=== PATIENT | female | born 1935 | race Caucasian/White ===

== ENCOUNTER 2023-03-31 22:55 | Emergency (ER) | payer MEDICARE, SELFPAY ==
[2023-03-31 22:56] VITALS: BP 152/76; PULSE 92; RESP 15; TEMP 36.2; O2SAT 95; BMI 27.0
--- NOTE | 2023-04-01 00:16 | EX.ED.DYSGE1 ---
HPI History of Present Illness Chief Complaint: Itching Informant: patient Narrative Narrative: Patient presents with itching and diffuse slight rash for over a week or more. Nothing has been taken. She thinks is maybe her amlodipine or enalapril. However she has been on both of them for over 20 years. The dose is not changed. The appearance of the pills have not changed with refills. She did get a refill on these about 4 days ago but her symptoms were going on before that and she gets refills every 3 months. She cannot think of any different foods. She only uses Dove and Dreft soap. Those are not different. She cannot think of any new exposures with furniture cars or anything else. She states she has some raised bumps that are drying out. But the itch is still going on. It is all over. No known bug exposure. No trouble breathing eating drinking at all. PFSH [facility] Home Medications Famciclovir [Famvir] 500 mg PO TID 05/20/17 [History Last Taken Unknown] amlodipine 2.5 mg tablet 1 tab PO DAILY 05/20/17 [History Last Taken Unknown] enalapril maleate 5 mg tablet 1 tab PO DAILY 05/20/17 [History Last Taken Unknown] hydrochlorothiazide 12.5 mg capsule 1 tab PO DAILY 05/20/17 [History Last Taken Unknown] hydrocodone-acetaminophen 5-325mg 5mg-325mg 1 tab PO QHS ##7 05/20/17 [Rx Last Taken Unknown] hydroxyzine pamoate 25 mg capsule 12.5 mg (1/2 x 25 mg) PO TID PRN PRN Anxiety #30 CAPSULES 04/01/23 [Rx Last Taken Unknown] prednisone 20 mg tablet 40 mg (2 x 20 mg) PO DAILY 5 days #10 TABLETS 04/01/23 [Rx Last Taken Unknown] Allergy/AdvReac Type Severity Reaction Status Date / Time No Known Allergies Allergy Verified 03/31/23 23:00 Social History Smoking Status: Never smoker ROS ROS ED Constitutional Constitutional ED: Denies chills, fever(s) or subjective Eyes Eyes: Denies change in vision ENT ENT ED: Denies rhinorrhea or sore throat Cardiovascular Cardiovascular: Denies chest pain or palpitations Respiratory/Chest Respiratory/Chest: Denies cough or dyspnea Gastrointestinal Gastrointestinal: Denies abdominal pain, diarrhea, nausea or vomiting Musculoskeletal Musculoskeletal: Denies myalgias Integumentary Reports rash Neurologic Neurologic: Denies paresthesias or weakness Hematologic/Lymphatic Hematologic/Lymphatic: Denies easy bleeding, easy bruising or lymphadenopathy Allergic/Immunologic Allergic/Immunologic ED: Denies urticaria EXAM Physical Exam Narrative Exam Narrative: General: Patient is awake alert sitting comfortably in the room. No acute distress breathing normally carries on normal conversation. HEENT does show a few raised bumps mostly at the edge of the hair. None really on the face. No facial swelling. No intraoral lesions or petechiae or ulcerations. Voice is normal. Neck is supple without stridor Lungs are clear bilaterally. Saturations are normal at 95% on room air showing no hypoxia. Heart is regular. There is a quiet 1/6 systolic murmur. Abdomen is nontender Extremities show no deformity Skin does show some raised bumps all about a couple millimeters around. They almost have excoriation on top. None of these are vesicular. None are pustular. They really are not hives. They do appear to be drying at this time. They certainly could be bites but they are evenly spaced. Const Vital Signs: 03/31/23 22:56 Temperature 97.2 F L Temperature Source Temporal Pulse Rate 92 Respiratory Rate 15 Blood Pressure 152/76 H Blood Pressure Mean 101 Pulse Ox 95 Oxygen Delivery Method Room Air MDM MDM MDM Narrative Medical decision making narrative: The patient is possibly her blood pressure medicines but she has been on this for over 20 years with no problems which leans against that as a likely cause. It may be something she took internally. It appears as though the rash is drying up at this time. We will get her something for itch. Even though she is older she is very functional. I will get her some hydroxyzine. She should use a reduced dosage although we will use regular dose for initially to help her get some rest. I will initiate prednisone as this has been going on a week to 10 days. We discussed reasons to return. Discharge Plan Triage Chief Complaint: Itching ED Provider: Jace Zacarias Dx/Rx/DC Orders Clinical Impression: Rash and nonspecific skin eruption, Pruritus Instructions: ED General Allergic Reactions Prescriptions: New hydroxyzine pamoate [hydroxyzine pamoate] 25 mg capsule 12.5 mg PO TID PRN PRN (Reason: Anxiety) Qty: 30 0RF Rx Instructions: Take 1/2 to 1 capsule 3-4 times a day as needed for itch. Caution can make drowsy prednisone 20 mg tablet 40 mg PO DAILY 5 Days Qty: 10 0RF No Action hydrocodone-acetaminophen 1 TABLET tablet 1 tab PO QHS Qty: 7 0RF enalapril maleate 5 MG tablet 1 tab PO DAILY Patient Comments: DOSE UNKNOWN amlodipine 2.5 MG tablet 1 tab PO DAILY Patient Comments: DOSE UNKNOWN hydrochlorothiazide 12.5 MG capsule 1 tab PO DAILY Patient Comments: DOSE UNKNOWN Famciclovir [Famvir] 500 MG tablet 500 mg PO TID Referrals: Radha Marquez DO [Med Staff - Active Staff] - 3-5 Days if not improving Activity Restrictions/Additional Instructions: Up with your physician or referral as above. Disposition Disposition: Home, Self Care
[2023-04-01] MEDS: predniSONE 20 MG Tablet 40 MG PO (00:26)
[2023-04-01] MEDS: hydrOXYzine PAM 25 MG Capsule PO (00:27)
[2023-04-01 00:59] VITALS: PULSE 76; RESP 16; O2SAT 98
== END 2023-04-01 01:30 | disposition home or self-care (01) ==
LOC: ED 04-01 00:36
PROVIDERS: Emergency Provider Emergency Medicine; PCP Nurse Practitioner; Visit Provider Emergency Medicine
DX: R21 Rash and other nonspecific skin eruption (principal); L29.9 Pruritus, unspecified; Z79.899 Other long term (current) drug therapy
CPT/HCPCS: 99283

== ENCOUNTER 2023-04-21 18:46 | Emergency (ER) | payer MEDICARE, SELFPAY ==
[2023-04-21 18:47] VITALS: BP 139/96; PULSE 99; RESP 18; TEMP 36.4; O2SAT 95; BMI 27.2
--- NOTE | 2023-04-21 21:56 | EDS_ITS ---
HPI History of Present Illness Chief Complaint: Rash Narrative Narrative: With rash on her back which she has had previously. She states that last time she was in the emergency room she was treated with prednisone and hydroxyzine and this cleared it up. She states she followed up Kitty Older and was told to go to dermatology but never did it now the rash has returned. She states exactly the same. It is itchy. Topical creams do not work. She denies any new soaps, dyes, detergents, linens etc. Patient with no fevers or chills. No difficulty breathing. PFSH PFSH Home Medications amlodipine 2.5 mg tablet 10 mg PO DAILY 05/20/17 [History Last Taken Unknown] enalapril maleate 5 mg tablet 20 mg PO DAILY 05/20/17 [History Last Taken Unknown] hydroxyzine pamoate 25 mg capsule 12.5 mg (1/2 x 25 mg) PO TID PRN PRN Anxiety #30 CAPSULES 04/01/23 [Rx Last Taken Unknown] prednisone 20 mg tablet 40 mg (2 x 20 mg) PO DAILY 5 days #10 TABLETS 04/01/23 [Rx Last Taken Unknown] hydroxyzine HCl 25 mg tablet 25 mg PO TID PRN itching #30 tabs 04/21/23 [Rx Last Taken Unknown] prednisone 10 mg tablet 10 mg PO UD #33 tabs 04/21/23 [Rx Last Taken Unknown] Allergy/AdvReac Type Severity Reaction Status Date / Time No Known Allergies Allergy Verified 03/31/23 23:00 Social History Smoking Status: Never smoker ROS [facility] ED Constitutional Constitutional ED: Denies chills, fever(s) or sweats Eyes Eyes: Denies blurry vision or change in vision ENT ENT ED: Denies ear pain or sore throat Cardiovascular Cardiovascular: Denies chest pain, palpitations or racing heartbeat Respiratory/Chest Respiratory/Chest: Denies cough, dyspnea or sputum Gastrointestinal Gastrointestinal: Denies abdominal pain, constipation, diarrhea, nausea or vomiting Genitourinary Genitourinary ED: Denies dysuria, hematuria or urinary frequency Musculoskeletal Musculoskeletal: Denies arthralgias, myalgias or neck pain Integumentary Reports rash; Denies abscess or Abrasions Neurologic Neurologic: Denies headache(s), paresthesias or weakness Psychiatric Psychiatric: Denies anxiety, depression, suicidal ideation or suicidal thoughts Endocrine Endocrinology: Denies polydipsia or polyuria EXAM Physical Exam Const Vital Signs: 04/21/23 18:47 04/21/23 22:18 Temperature 97.5 F L Temperature Source Temporal Pulse Rate 99 76 Respiratory Rate 18 15 Blood Pressure 139/96 H 134/72 H Blood Pressure Mean 110 92 Pulse Ox 95 96 Oxygen Delivery Method Room Air Positive well nourished General Appearance ED: NAD HEENT Reports moist mucous membranes Eyes PERRL and EOMs intact bilaterally Resp normal respiratory effort Cardio regular rate and regular rhythm Extremity normal to inspection Neuro oriented x3 and CN's II-XII intact bilaterally Sensorium / Orientation: alert Psych mental status grossly normal Skin Skin Narrative: Overlying the back is slightly erythematous and there is nonspecific maculopapular rash on the back. Is not tender. No skin sloughing. MDM MDM MDM Narrative Medical decision making narrative: Patient presenting with rash on her back. She states the last time it responded to prednisone and hydroxyzine. I do believe it does not look infectious. I will start her on first dose of prednisone here in the ED and give her hydroxyzine. She can prescriptions for both. I recommended that she follow-up with dermatology after this and she acknowledged understanding. Impression: 1. Dermatitis Discharge Plan Triage Chief Complaint: Rash ED Provider: Cristino Orosco Dx/Rx/DC Orders Instructions: ED Atopic Dermatitis (Adult) Prescriptions: New prednisone 10 mg tablet 10 mg PO UD Qty: 33 0RF Rx Instructions: Take 4 tablets daily for 3 days, then 3 daily for 3 days, then 2 daily for 3 days, then 1 a day for 3 days then 1 QOD for 3 doses. hydroxyzine HCl 25 mg tablet 25 mg PO TID PRN (Reason: itching) Qty: 30 0RF No Action enalapril maleate 5 MG tablet 20 mg PO DAILY Patient Comments: DOSE UNKNOWN amlodipine 2.5 MG tablet 10 mg PO DAILY Patient Comments: DOSE UNKNOWN hydroxyzine pamoate [hydroxyzine pamoate] 25 mg capsule 12.5 mg PO TID PRN PRN (Reason: Anxiety) Qty: 30 0RF Rx Instructions: Take 1/2 to 1 capsule 3-4 times a day as needed for itch. Caution can make drowsy prednisone 20 mg tablet 40 mg PO DAILY 5 Days Qty: 10 0RF Primary Care Provider: Kitty Minaya NP Referrals: Kitty Minaya PET TECHNOLOGIST, PET TECHNOLOGIST-C [Primary Care Provider] - Disposition Disposition: Home, Self Care Discharge Date/Time: 04/21/23 22:45
[2023-04-21] MEDS: predniSONE 20 MG Tablet 60 MG PO (22:12)
[2023-04-21] MEDS: hydrOXYzine PAM 25 MG Capsule PO (22:12)
[2023-04-21 22:18] VITALS: BP 134/72; PULSE 76; RESP 15; O2SAT 96
== END 2023-04-21 22:45 | disposition home or self-care (01) ==
LOC: ED 22:10
PROVIDERS: Emergency Provider Student in an Organized Health Care Education/Training Program; PCP Nurse Practitioner; Visit Provider Student in an Organized Health Care Education/Training Program
DX: L30.9 Dermatitis, unspecified (principal)
CPT/HCPCS: 99283